=== PATIENT | male | born 1980 | race Asian ===

== ENCOUNTER 2016-12-18 18:54 | Emergency (ER) | payer OTHER ==
--- NOTE | 2016-12-18 19:12 | UC ---
Laceration HPI - HPI Summary HPI Summary: The patient comes in today for: 1. Laceration of the right anterior knee. Onset: 30 minutes ago. Palliative/provocative: Flexing the knee makes it worse, and rest in extension makes it better. Quality: No discomfort. Region: Right anterior knee. Severity: 0/10 Time: Constant. Associated symptoms: Numbness: None. Discharge: None. Tetanus: He thinks that he got his last tetanus vaccine in the last 10 years. * - History Of Current Complaint Stated Complaint: ANKLE LACERATION Time Seen by Provider: 12/18/16 19:05 Hx Obtained From: Patient - Allergies/Home Medications Allergies/Adverse Reactions: Allergies Allergy/AdvReac Type Severity Reaction Status Date / Time No Known Allergies Allergy Verified 08/28/16 19:46 Home Medications: Home Medications NK [No Home Medications Reported] 12/18/16 [History Confirmed 12/18/16] PMH/Surg Hx/FS Hx/Imm Hx Previously Healthy: Yes Endocrine History Of: Denies: Diabetes, Thyroid Disease, Hyperthyroidism, Hypothyroidism, Dyslipidemia Cardiovascular History Of: Denies: Cardiac Disorders, Hypertension, Pacemaker/ICD, Myocardial Infarction , Congestive Heart Failure, Atrial Fibrillation, Deep Vein Thrombosis, Bleeding Disorders Respiratory History Of: Denies: COPD, Asthma, Bronchitis, Pneumonia, Pulmonary Embolism GI/ History Of: Denies: Gastroesophageal Reflux, Ulcer, Gastrointestinal Bleed, Gall Bladder Disease, Kidney Stones, Diverticulitis, Renal Disease, Urosepsis Neurological History Of: Denies: TIA, CVA, Dementia, Seizures, Migraine Psychological History Of: Denies: Anxiety, Depression, Bipolar Disorder, Schizophrenia, Post Traumatic Stress Disorder Cancer History Of: Denies: Lung Cancer, Colorectal Cancer, Breast Cancer, Prostate Cancer, Cervical Cancer Other History Of: Negative For: HIV, Hepatitis B, Hepatitis C, Anticoagulant Therapy - Surgical History Surgical History: Yes Surgery Procedure, Year, and Place: nose surgery - Family History Known Family History: Positive: Hypertension, Other - hypercholesterolima Negative: Cardiac Disease, Diabetes - Social History Occupation: Employed Full-time Alcohol Use: Rare Substance Use Type: None Smoking Status (MU): Never Smoked Tobacco Review of Systems Constitutional: Negative Skin: Negative Eyes: Negative ENT: Negative Respiratory: Negative Cardiovascular: Negative Gastrointestinal: Negative Genitourinary: Negative All Other Systems Reviewed And Are Negative: Yes Physical Exam Triage Information Reviewed: Yes Appearance: Well-Appearing, No Pain Distress, Well-Nourished Vital Signs Reviewed: Yes Eyes: Positive: Conjunctiva Clear. Negative: Discharge ENT: Positive: Hearing grossly normal. Negative: Pharyngeal erythema, Nasal congestion, Nasal drainage, TM bulging, TM dull, TM red, Tonsillar swelling, Tonsillar exudate Dental: Negative: Gross Decay/Caries @, Dental Fracture @ Neck: Positive: Supple, Nontender, No Lymphadenopathy. Negative: Nuchal Rigidity Respiratory: Positive: Chest non-tender, Lungs clear, No respiratory distress, No accessory muscle use. Negative: Crackles, Wheezing Cardiovascular: Positive: RRR, No Murmur Abdomen Description: Positive: Nontender, No Organomegaly, Soft. Negative: Distended, Guarding Musculoskeletal: Positive: Strength Intact, ROM Intact Neurological: Positive: Alert, Muscle Tone Normal Psychological: Positive: Age Appropriate Behavior, Consolable Skin: Positive: Other - The patient has a 1 cm laceration on the patellar area of the right knee.. Negative: rashes, breakdown Laceration Repair - Laceration Repair 1 Description: Linear Laceration Size After Repair: Length (cm) - 1, Width (mm) - 2, Depth (mm) - 2 Modified For Repair: No Anesthesia Used: 2.0% Lido Additive Used (in ml): Epi Cleansing Completed Via Routine Prep: Yes Irrigation With Pressure Irrigation Device: Yes Closure Material: Sutures Suture Of: Skin Suture Type: Nylon - Five 6-0 nylon Laceration Course/Dx - Differential Dx - Laceration/Wound Differental Diagnoses: Laceration Provider Diagnoses: Right anterior knee laceration. Discharge - Discharge Plan Condition: Stable Disposition: HOME Patient Education Materials: Laceration (ED), Care For Your Stitches (ED) Referrals: Germain Hoyt MD [Primary Care Provider] - 2 Weeks (Please see your primary care provider or us to have the sutures removed in 12-14 days. If there is any problem such as increasing tenderness, redness, discharge, or swelling, please be seen sooner.)
[2016-12-18] MEDS ORDERED: Lidocaine 2% W/EPI 1:100,000* 20 ML MDV ONE (19:18)
[2016-12-18] MEDS ORDERED: Lidocaine 2% PF * 5 ML VIAL ONE (19:18)
[2016-12-18 19:20] VITALS: BP 113/73
== END 2016-12-18 20:32 | disposition home or self-care (01) ==
LOC: UCEAST 18:54
DX: S81.011A Laceration without foreign body, right knee, initial encounter (principal); X58.XXXA Exposure to other specified factors, initial encounter; Y93.9 Activity, unspecified; Y92.9 Unspecified place or not applicable
CPT/HCPCS: 12001; 99211; G0463

== ENCOUNTER 2018-11-01 15:51 | Emergency (ER) | payer OTHER ==
--- NOTE | 2018-11-01 16:04 | UC ---
Respiratory Complaint HPI - HPI Summary HPI Summary: 38 y/o male presents to the urgent care c/o nasal congestion w/ yellowish nasal discharge w/ difficulty breathing through his nose at times for the past month. Pt reports he went to [facility] and something trigger the nasal congestion there. He has taken Sudafed and OTC medication w/o any improvement. Now PND is yellowish and sinus pressure w/ sinus pain and MARTIN worsen for the past week. Pain is 4/10. Pt denies fever, Dizziness, ear pain, SOB, chest pain abdominal pain, N/V/D. - History of Current Complaint Stated Complaint: RESP COMPLAINT Time Seen by Provider: 11/01/18 16:01 Hx Obtained From: Patient Onset/Duration: Gradual Onset, Lasting Weeks - 4 weeks, Still Present, Worse Since - last week Timing: Intermittent Episodes Severity Initially: Mild Severity Currently: Moderate Pain Intensity: 4 Pain Scale Used: 0-10 Numeric Character: Cough: Nonproductive Aggravating Factors: Recumbent Position Alleviating Factors: OTC Meds Associated Signs And Symptoms: Positive: URI, Nasal Congestion, Sinus Discomfort. Negative: Dyspnea, Fever, Chills, Wheezing - Risk Factors Pulmonary Embolism Risk Factors: Negative Cardiac Risk Factors: Negative Pseudomonas Risk Factors: Negative Tuberculosis Risk Factors: Negative - Allergies/Home Medications Allergies/Adverse Reactions: Allergies Allergy/AdvReac Type Severity Reaction Status Date / Time No Known Allergies Allergy Verified 02/14/17 14:08 PMH/Surg Hx/FS Hx/Imm Hx Previously Healthy: Yes - Pt denies PMHX Other History Of: Negative For: HIV, Hepatitis B, Hepatitis C, Anticoagulant Therapy - Surgical History Surgical History: Yes Surgery Procedure, Year, and Place: nose surgery TO STRAIGHTEN AND AIR FLOW IS BETTER - Family History Known Family History: Positive: Hypertension, Other - hypercholesterolima Negative: Cardiac Disease, Diabetes - Social History Occupation: Employed Full-time Lives: With Family Alcohol Use: Rare Substance Use Type: None Smoking Status (MU): Never Smoked Tobacco - Immunization History Most Recent Tetanus Shot: not sure Review of Systems All Other Systems Reviewed And Are Negative: Yes Constitutional: Positive: Negative Skin: Positive: Negative Eyes: Positive: Negative ENT: Positive: Ear Ache - B/L ear pressure, Nasal Discharge - yellowish, Sinus Congestion, Sinus Pain/Tenderness, Other - yellowish PND Respiratory: Positive: Negative Cardiovascular: Positive: Negative Gastrointestinal: Positive: Negative Genitourinary: Positive: Negative Motor: Positive: Negative Neurovascular: Positive: Negative Musculoskeletal: Positive: Negative Neurological: Positive: Negative Psychological: Positive: Negative Is Patient Immunocompromised?: No Physical Exam - Summary Physical Exam Summary: Vitals: reviewed General: Well developed, well-nourished male patient with NAD. Head and face: Normocephalic and atraumatic, Positive tenderness over the frontal and maxillary sinuses.. Eyes: PERRLA, EOMI x 2. Normal conjunctiva. No eye discharge. ENT: Ears and TM with normal limits. Nose: edematous and erythematous nasal mucosa with with yellowish discharge and erythematous mucosa. Pharynx with erythema, no exudate. + yellowish PND Neck: Supple, no JVD, no carotid bruits and no lymphadenopathy. Lungs: clear, no rales, no rhonchi, no wheezes. CVS: RRR, S1 and S2 present no murmurs or gallops appreciated. Abdomen: soft nontender with positive bowel sounds. Extremities: no edema noted. Neuro: WNL. Skin: warm and dry Triage Information Reviewed: Yes Respiratory Course/Dx - Course Course Of Treatment: 38 y/o male presents to the urgent care c/o nasal congestion w/ yellowish nasal discharge w/ difficulty breathing through his nose at times for the past month. Pt reports he went to [facility] and something trigger the nasal congestion there. He has taken Sudafed and OTC medication w/o any improvement. Now PND is yellowish and sinus pressure w/ sinus pain and MARTIN worsen for the past week. Pain is 4/10. Pt denies fever, Dizziness, ear pain, SOB, chest pain abdominal pain, N/V/D. Hx obtained. Pt w/ bacterial sinusitis on examination. Pt with 4 weeks of symptoms getting worse. Pt Rx Augmentin PO and flonase nasal spray. Discharge instructions explained to Pt. Advised to Return to the clinic or PCP if symptoms do not improve.Pt understood and agreed with plan of care. - Differential Dx/Diagnosis Differential Diagnosis/HQI/PQRI: Bronchitis, Influenza, Laryngitis, Lower Resp Infection, Sinusitis Provider Diagnosis: Sinusitis Discharge - Sign-Out/Discharge Documenting (check all that apply): Patient Departure - d/c home All imaging exams completed and their final reports reviewed: No Studies - Discharge Plan Condition: Stable Disposition: HOME Prescriptions: Amoxicillin/Clavulanate TAB* [Augmentin TAB 875*] 875 mg PO BID #14 tab Fluticasone NASAL SPRAY 50MCG* [Flonase NASAL SPRAY 50MCG*] 2 spray BOTH NARES DAILY #1 btl Patient Education Materials: Sinusitis (ED) Referrals: Germain Hoyt MD [Primary Care Provider] - 1 Week Additional Instructions: 1- Please increase fluid intake and rest. take full course of antibiotic to avoid resistance 2-Use Flonase as directed to help drain fluid. Also buy saline drops to clear sinuses 3-Return to the clinic or PCPin 1 week if symptoms do not improve for further management and treatment - Billing Disposition and Condition Condition: STABLE Disposition: Home
[2018-11-01 16:16] VITALS: BP 133/72
== END 2018-11-01 16:35 | disposition home or self-care (01) ==
LOC: UCEAST 15:51
DX: J32.9 Chronic sinusitis, unspecified (principal)
CPT/HCPCS: 99212; G0463